=== PATIENT | female | born 1985 | race Caucasian/White ===

== ENCOUNTER 2017-04-22 18:14 | Emergency (ER) | payer MEDICAID ==
[2017-04-22 18:24] VITALS: RESP 16; O2SAT 96
--- NOTE | 2017-04-22 18:45 | EDPHY ---
H & P Stated Complaint: Vaginal odor, discharge, suprapubic pain x 1 week. Time Seen by Provider: 04/22/17 18:19 HPI/ROS: CHIEF COMPLAINT: Lower abdominal pain HISTORY OF PRESENT ILLNESS: This is a 31-year-old female who presents with 1 week of vaginal/ lower abdominal pain. She notices a vaginal discharge with odor. She is not sexually active. Her last menstrual period was March 31, 2017. She has had some mild dysuria and frequency. No fever. No back pain. She denies vomiting, constipation, and diarrhea. She had an episode of bacterial vaginosis a couple of months ago. REVIEW OF SYSTEMS: A ten point review of systems was performed and is negative with the exception of the items mentioned in the HPI. Mild upper respiratory infection was cough and congestion, no shortness of breath or chest pain. Past medical history: Negative Social history: She has 3 children. She smokes 1/2 pack cigarettes daily. No alcohol or illicit drug use. General Appearance: Alert. Vital signs reviewed. Eyes: Pupils equal and round, no conjunctival injection, no discharge. Anicteric. ENT, Mouth: Mucous membranes are moist, no oropharyngeal erythema or edema. Edentulous with upper plate in place. Neck: No lymphadenopathy, supple. Respiratory: Lungs are clear to auscultation; no wheezes, rales, or rhonchi. Cardiovascular: Regular rate and rhythm; no murmur, rub, or gallop. Gastrointestinal: Abdomen is obese, soft and mildly tender in the suprapubic region, no masses or organomegaly, bowel sounds normal. Pelvic: Small to moderate amount of white discharge, not clumped, with odor. No cervical motion tenderness. No uterine tenderness. Cervix is not friable. Skin: Warm and dry, no rashes on exposed skin, normal color. Back: Nontender to palpation over the thoracolumbar spine. No CVAT. Extremities: No lower extremity edema, no calf tenderness or swelling. Neurological: Alert and oriented. Moving all four extremities easily and equally. Psychiatric: Normal affect. - Personal History LMP (Females 10-55): 22-28 Days Ago Current Tetanus Diphtheria and Acellular Pertussis (TDAP): Yes Tetanus Vaccine Date: within 10 years - Medical/Surgical History Hx Asthma: Yes Hx Chronic Respiratory Disease: No Hx Diabetes: No Hx Cardiac Disease: No Hx Renal Disease: No Hx Cirrhosis: No Hx Alcoholism: No Hx HIV/AIDS: No Hx Splenectomy or Spleen Trauma: No Other PMH: med hx-depression, anxiety, and dental. surg-none - Social History Smoking Status: Heavy smoker Constitutional: Initial Vital Signs Temperature (C) 37.1 C 04/22/17 18:21 Heart Rate 88 04/22/17 18:21 Respiratory Rate 16 04/22/17 18:21 Blood Pressure 146/66 H 04/22/17 18:21 O2 Sat (%) 96 04/22/17 18:21 O2 Delivery Mode Room Air Allergies/Adverse Reactions: No Known Allergies Allergy (Verified 04/22/17 18:21) Home Medications: Medication Instructions Recorded Metronidazole 500 mg PO BID #14 tablet 04/22/17 Medical Decision Making ED Course/Re-evaluation: Urinalysis is normal. No evidence of urinary tract infection or pyelonephritis. She feels that her symptoms are much like what she experienced with a previous episode of bacterial vaginosis. She would like to begin treatment and I have written her a prescription for Flagyl while swabs are pending. I do not suspect a surgical problem. Differential Diagnosis: Considered a differential diagnosis that includes but is not limited to UTI, pyelonephritis, STD, PID, BV, trich, menstrual cramps, appendicitis, ovarian cyst, ovarian torsion, muscle pain. - Data Points Laboratory Results: 04/22/17 04/22/17 18:25 18:15 Urine Color YELLOW Urine Appearance CLEAR Urine pH 7.0 (5.0-7.5) Ur Specific [place] 1.020 (1.002-1.030) Urine Protein NEGATIVE (NEGATIVE) Urine Ketones NEGATIVE (NEGATIVE) Urine Blood NEGATIVE (NEGATIVE) Urine Nitrate NEGATIVE (NEGATIVE) Urine Bilirubin NEGATIVE (NEGATIVE) Urine Urobilinogen 0.2 EU EU (0.2-1.0) Ur Leukocyte Esterase NEGATIVE (NEGATIVE) Urine Glucose NEGATIVE (NEGATIVE) Urine Test NEGATIVE Departure - Departure Disposition: Home, Routine, Self-Care Clinical Impression: Lower abdominal pain Condition: Good Instructions: Metronidazole (By mouth), Bacterial Vaginosis (ED) Additional Instructions: As you know, the diagnosis of bacterial vaginosis is not firm he head. The tests will not be completed for another day or two. Given her symptoms, I think it is reasonable to go ahead and treat you for bacterial vaginosis. Adult Pain & Fever Control: We recommend Acetaminophen (Tylenol) and Ibuprofen (Motrin,Advil) for pain and fever control. When fever is high or pain severe, both drugs can be used at the same time, but at different intervals. Please note the time differences. Your dose is: Acetaminophen [650]mg every 4 to 6 hours Ibuprofen [400]mg every [6] hours with food Note: do not take Acetaminophen with Hydrocodone (Vicodin, Lortab) or Oycodone (Percocet). These medications also contain Acetaminophen. No more than 3000mg of Acetaminophen should be taken in 24 hours (for an adult). I am referring you to an adult primary care doctor, Dr. Banks, should you need 1. Referrals: Susan Banks MD [Medical Doctor] - As per Instructions Prescriptions: Metronidazole 500 mg PO BID #14 tablet
[2017-04-22 20:11] VITALS: BP 132/64; PULSE 80; TEMP 98.4
[2017-04-25 15:05] LABS: GC AMPLIFICATION GENPROBE NEGATIVE (NEGATIVE)
== END 2017-04-22 20:11 | disposition home or self-care (01) ==
LOC: CED 18:14
DX: R10.30 Lower abdominal pain, unspecified (principal); J45.909 Unspecified asthma, uncomplicated; F17.200 Nicotine dependence, unspecified, uncomplicated
CPT/HCPCS: 81003-PO; 81025-PO

== ENCOUNTER 2017-11-18 19:13 | Emergency (ER) | payer MEDICAID ==
[2017-11-18 19:29] VITALS: BP 141/92
--- NOTE | 2017-11-18 20:00 | EDPHY ---
H & P Stated Complaint: Dizzy 2-3 days rang nurse line, intermittant nausea. Time Seen by Provider: 11/18/17 19:23 HPI/ROS: CHIEF COMPLAINT: Dizzy and off balance History by patient HISTORY OF PRESENT ILLNESS: 32-year-old woman with no prior medical history presents complaining of feeling dizzy and his if the ground is moving up and down when she walks. She says this feels something like being on a boat. It is associated with some mild nausea from time to time. Symptoms began 3 days ago when she was getting off an elevator. She does not feel them when she is lying flat but feels that when she sits up. Seems somewhat worse when she turns her head from side to side. Not associated with any visual difficulty, difficulty speaking, focal numbness or weakness. She denies any recent head trauma. She denies any neck pain. She says she has a mild headache today. She was treated for pneumonia which was associated with cough, nasal congestion and sinus congestion approximately a month ago and had a course of azithromycin and prednisone at that time. She has never had anything like this before. She denies any syncope or near syncope. She denies any palpitations. She is a smoker. Her father of congestive heart failure age 39 but with a heavy smoker, drinker and other drug user. There is no family history of sudden cardiac . REVIEW OF SYSTEMS: As in HPI, and all other systems reviewed and are negative Source: Patient - Personal History LMP (Females 10-55): Irregular Current Tetanus/Diphtheria Vaccine: Unsure Current Tetanus Diphtheria and Acellular Pertussis (TDAP): Unsure Tetanus Vaccine Date: within 10 years - Medical/Surgical History Hx Asthma: Yes Hx Chronic Respiratory Disease: No Hx Diabetes: No Hx Cardiac Disease: No Hx Renal Disease: No Hx Cirrhosis: No Hx Alcoholism: No Hx HIV/AIDS: No Hx Splenectomy or Spleen Trauma: No Other PMH: med hx-depression, anxiety, gestational diabetes. surg-none - Social History Smoking Status: Heavy smoker - Physical Exam Exam: General Appearance: Alert and no distress. Morbidly obese. Odor of tobacco Head: normocephalic, atraumatic, no sinus tenderness Eyes: Pupils equal and round no injection. Extraocular movements are intact with some nystagmus on right gaze which is extinguishable Ears: TM positive fluid behind the TM on the right, clear on the left OP: mucus membranes moist, no tonsillar enlargement, no exudates Neck: no meningismus, no cervical nodes, no submandibular nodes, full range of motion Respiratory: Chest is nontender, lungs are clear to auscultation. No wheezes, rales, rhonchi Cardiac: regular rate and rhythm. S1, S2, no murmurs, gallops, rubs appreciated. Gastrointestinal: Abdomen is soft and nontender, no masses, bowel sounds normal. Musculoskeletal: Neck is supple and nontender. Extremities have full range of motion and are nontender. Skin: No rashes or lesions. Neurologic: Awake alert oriented x3, cranial nerves 2-12 intact, finger-to- nose intact, [id number]-lj-[id number] intact, normal Romberg, normal gait, no pronator drift , sensation intact throughout Constitutional: Initial Vital Signs Temperature (C) 37 C 11/18/17 19:24 Heart Rate 88 11/18/17 19:24 Respiratory Rate 16 11/18/17 19:24 Blood Pressure 141/92 H 11/18/17 19:24 O2 Sat (%) 94 11/18/17 19:24 O2 Delivery Mode Room Air Allergies/Adverse Reactions: No Known Allergies Allergy (Verified 11/18/17 19:23) Home Medications: Medication Instructions Recorded Meclizine HCl 25 mg PO TID PRN #20 tablet 11/18/17 Medical Decision Making - Diagnostics EKG Interpretation: Normal sinus rhythm at a rate of 82 with normal axis, normal intervals and no ST segment abnormalities. Impression: Normal EKG ED Course/Re-evaluation: 32-year-old woman presents with symptoms of dizziness consistent with a peripheral vertigo. There is no evidence of any neurologic impairment or central cause of vertigo at this time. I performed an Suresh maneuver. On re- evaluation patient is feeling better while sitting although she still had some mild symptoms while walking. We will give her a trial of meclizine in addition if she feels like she needs at home. I am recommending follow up with primary care physician or ENT if her symptoms persist. Departure - Departure Disposition: Home, Routine, Self-Care Clinical Impression: Vertigo Condition: Good Instructions: Vertigo (ED) Additional Instructions: You were seen by Dr. Luz Maria Harley today. We have diagnosed to with vertigo due to an inner ear problem. We have done an Suresh maneuver which will hopefully help her symptoms. If her symptoms persist he may try taking meclizine. Please follow up with her primary care physician or Ear Nose Throat specialist symptoms persist for longer than another week. Return for any worsening or new concerns. Referrals: Patti Camejo FNP [Primary Care Provider] - As per Instructions Prescriptions: Meclizine HCl 25 mg PO TID PRN #20 tablet PRN Reason: Vertigo
== END 2017-11-18 20:20 | disposition home or self-care (01) ==
LOC: CED 19:13
DX: R42 Dizziness and giddiness (principal); F17.200 Nicotine dependence, unspecified, uncomplicated

== ENCOUNTER 2018-05-03 19:37 | Emergency (ER) | payer MEDICAID ==
--- NOTE | 2018-05-03 20:12 | EDPHY ---
H & P Stated Complaint: c/o ST/Chest cold since Tuesday Time Seen by Provider: 05/03/18 20:00 HPI/ROS: Chief Complaint: Sore throat HPI: 32-year-old woman presenting with 2 days of worsening sore throat. Hurts to swallow. She is able swallow. No difficulty breathing. Feels like her glands are swollen. No nausea or vomiting. No cough. No shortness of breath. No fevers or chills. No history of strep throat in the past. ROS: 10 systems were reviewed and were negative except those elements noted in the HPI. PMH: Asthma Social History: No smoking, no alcohol, no recreational drug use Family History: non-contributory Physical Exam: Gen: Awake, Alert, No Distress HEENT: Nose: no rhinorrhea Eyes: PERRLA, EOMI Mouth: Moist mucosa moderate oropharyngeal erythema with exudate, no edema or peritonsillar swelling. Neck: Supple, no JVD, mild cervical lymphadenopathy Ext: no edema, non-tender Skin: no rash Neuro: CN II-XII intact, Sensation grossly intact, Strength 5/5 in bilateral upper and lower extremities - Personal History LMP (Females 10-55): 8-14 Days Ago Current Tetanus Diphtheria and Acellular Pertussis (TDAP): Yes Tetanus Vaccine Date: within 10 years - Medical/Surgical History Hx Asthma: Yes Hx Chronic Respiratory Disease: No Hx Diabetes: No Hx Cardiac Disease: No Hx Renal Disease: No Hx Cirrhosis: No Hx Alcoholism: No Hx HIV/AIDS: No Hx Splenectomy or Spleen Trauma: No Other PMH: med hx-depression, anxiety, gestational diabetes. surg-none - Social History Smoking Status: Heavy smoker Constitutional: Initial Vital Signs Temperature (C) 36.6 C 05/03/18 19:45 Heart Rate 110 H 05/03/18 19:45 Respiratory Rate 20 05/03/18 19:45 Blood Pressure 157/89 H 05/03/18 19:45 O2 Sat (%) 93 05/03/18 19:45 O2 Delivery Mode Room Air Allergies/Adverse Reactions: No Known Allergies Allergy (Verified 11/18/17 19:23) Home Medications: Medication Instructions Recorded Penicillin V Potassium [Penicillin 500 mg PO BID #20 tab 05/03/18 VK] Medical Decision Making ED Course/Re-evaluation: Patient is positive for strep. Will treat with penicillin, follow up with primary care in about a week. Departure - Departure Disposition: Home, Routine, Self-Care Clinical Impression: Strep throat Condition: Good Instructions: Strep Throat (ED), Penicillin V (By mouth) Additional Instructions: Please take your full course of antibiotics. Take ibuprofen, 600 mg every 8 hr. You may alternate with acetaminophen, 1000 mg every 8 hr. Follow up with primary care in about a week if symptoms are not improving. Referrals: [facility],. [Clinic] - As per Instructions Prescriptions: Penicillin V Potassium [Penicillin VK] 500 mg PO BID #20 tab
[2018-05-03] MEDS ORDERED: PENICILLIN VK 250MG PREPACK#6 BTL TAKEHOME ONE (20:31)
[2018-05-03 20:37] VITALS: BP 137/84
== END 2018-05-03 20:36 | disposition home or self-care (01) ==
LOC: CED 19:37
DX: J02.9 Acute pharyngitis, unspecified (principal)
CPT/HCPCS: 99283-ER

== ENCOUNTER 2018-05-19 13:29 | Emergency (ER) | payer MEDICAID ==
--- NOTE | 2018-05-19 13:58 | EDPHY ---
H & P Stated Complaint: PT. states 2weeks with constant pelvic pain,denies n/v/d o chills Time Seen by Provider: 05/19/18 13:39 HPI/ROS: Chief Complaint: Pelvic pain HPI: 32-year-old G3, P3 woman presenting with intermittent right pelvic pain for the last 2 months which has been worse for the last 2 weeks and constant for the last 2 days. She did start her menstrual cycle 2 days ago. It is normal. She has not had any vaginal discharge at all. She is not sexually active. No history of sexually transmitted infections in the past. She has not followed up with OBGYN. No fevers or chills. No urinary urgency and frequency. I did see her 2 weeks ago and diagnosed with strep pharyngitis which has improved after antibiotics. She denies any vaginal irritation or vaginitis symptoms. Pain is always on the right-hand side of her pelvis. There are no aggravating or alleviating factors. ROS: 10 systems were reviewed and were negative except those elements noted in the HPI. PMH: Asthma Social History: No smoking, no alcohol, no recreational drug use Family History: non-contributory Physical Exam: Gen: Awake, Alert, No Distress HEENT: Nose: no rhinorrhea Eyes: PERRLA, EOMI Mouth: Moist mucosa Neck: Supple, no JVD Chest: nontender, lungs clear to auscultation Heart: S1, S2 normal, no murmur Abd: Soft, moderate right adnexal tenderness, no right lower quadrant tenderness , no guarding Back: no CVA tenderness, no midline tenderness Ext: no edema, non-tender Skin: no rash Neuro: CN II-XII intact, Sensation grossly intact, Strength 5/5 in bilateral upper and lower extremities - Personal History LMP (Females 10-55): 1-7 Days Ago Current Tetanus Diphtheria and Acellular Pertussis (TDAP): Yes Tetanus Vaccine Date: 2015 - Medical/Surgical History Hx Asthma: Yes Hx Chronic Respiratory Disease: No Hx Diabetes: No Hx Cardiac Disease: No Hx Renal Disease: No Hx Cirrhosis: No Hx Alcoholism: No Hx HIV/AIDS: No Hx Splenectomy or Spleen Trauma: No Other PMH: med hx-depression, anxiety, gestational diabetes. surg-none - Social History Smoking Status: Heavy smoker Constitutional: Initial Vital Signs Temperature (C) 37.1 C 05/19/18 13:38 Heart Rate 98 05/19/18 13:38 Respiratory Rate 16 05/19/18 13:38 Blood Pressure 139/92 H 05/19/18 13:38 O2 Sat (%) 95 05/19/18 13:38 O2 Delivery Mode Room Air Allergies/Adverse Reactions: No Known Allergies Allergy (Verified 05/19/18 13:37) Home Medications: Medication Instructions Recorded Essure 05/19/18 Medical Decision Making ED Course/Re-evaluation: Urine test is negative. Urinalysis is positive for blood otherwise negative. Patient is in ultrasound now. Ultrasound results consistent with simple ovarian cyst. Will refer for outpatient OBGYN follow-up. [id number] analgesia should be sufficient. - Data Points Point of Care Test Results: Urine Collection Date 05/19/18 Collection Time 14:08 HCG Results Negative Urine Dip Collection Date 05/19/18 Collection Time 14:08 Specific [place] (1.002-1.030) 1.030 PH (5.0-7.5) 5.5 Leukocytes (Negative) Negative Nitrites (Negative) Negative Protein (Negative) Trace Glucose (Negative) Negative Ketones (Negative) Negative Urobilnogen (0.2-1.0 EU) 1.0 Bilirubin (Negative) Negative Blood (Negative) 3+ Departure - Departure Disposition: Home, Routine, Self-Care Clinical Impression: Cyst of ovary Condition: Good Instructions: Ovarian Cyst (ED) Additional Instructions: Take ibuprofen, 600 mg every 8 hr. You may alternate with acetaminophen, 1000 mg every 8 hr. Follow up with your OBGYN in 2-3 weeks for further evaluation. Referrals: [facility],. [Clinic] - As per Instructions
[2018-05-19 15:21] VITALS: BP 124/77
== END 2018-05-19 15:00 | disposition home or self-care (01) ==
LOC: CED 13:29
DX: N83.201 Unspecified ovarian cyst, right side (principal)
CPT/HCPCS: 76856-PO; 81025-ER; 99284-ER